=== PATIENT | female | born 1960 | race Hispanic/Latino ===

== ENCOUNTER 2020-05-07 18:05 | Emergency (ER) | payer BC ==
[~2020-05-07] VITALS: Ht 152.4 cm; Wt 119.7 kg
== END 2020-05-07 20:25 | disposition home or self-care (01) ==
LOC: ER 20:24
DX: U07.1 COVID-19 (principal); R06.02 Shortness of breath; I10 Essential (primary) hypertension; E78.5 Hyperlipidemia, unspecified
CPT/HCPCS: 99283